=== PATIENT | male | born 1965 | race Caucasian/White ===

== ENCOUNTER 2018-02-19 07:49 | Emergency (ER) | payer BC ==
--- NOTE | 2018-02-19 07:52 | PDOC ---
History of Present Illness - General Chief Complaint: Lightheaded Stated Complaint: DIZZY,HEADACHE History Source: Patient Exam Limitations: No Limitations - History of Present Illness Initial Comments: Please note, pt seen immediately upon arrival to his room_ 02/19/18 07:52 Mr Alba is a 52 yo M with a history of GERD and Anxiety who presents to the ER with a complaint of dizziness/lightheadedness He states that he was in his usual state of health until approximately 3 weeks ago when he noted lightheadedness. His lightheadedness has been persistent, with intermittent worsening bouts. He notes that 2 nights ago he became unsteady and fell in his kitchen. He denies head trauma, states he landed onto his right side. He denies loss of consciousness or amnesia. He awoke the following morning (2 days ago) with a 10 out of 10 headache. He describes the headache as throbbing, bitemporal, persistent. He took several Aleve throughout the day, noticed an improvement in his headache but no complete resolution. He still has a headache today however it is better than yesterday, rated 7/10. He denies neck pain. He decided to come to the emergency department today because he was driving to his mother's house to drop something off, and noted that his dizziness worsened. He denies vertigo, seeing the room spinning around him. He denies tinnitus. He denies focal weakness or numbness. He notices intermittent blurry vision, intermittent double vision. 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 HEAD, EYES, EARS, NOSE AND THROAT: No: change in vision, ear pain, discharge, sore throat, throat swelling. CARDIOVASCULAR: No: chest pain, lightheadedness, palpitations, syncope RESPIRATORY: No: cough, shortness of breath, wheezing, hemoptysis, stridor. GASTROINTESTINAL: No: nausea, vomiting, diarrhea, abdominal cramping, rectal bleeding, constipation. GENITOURINARY: No: dysuria, hematuria, frequency, urgency, flank pain. MUSCULOSKELETAL: No: back pain, neck pain, joint pain, muscle swelling or pain SKIN: No: lesions, pallor, rash or easy bruising. NEUROLOGIC: Yes: headache, vertigo No:paresthesias, weakness ENDOCRINE: No: unexplained weight gain or loss HEMATOLOGIC/LYMPHATIC: No: anemia, easy bleeding, swelling nodes. GENERAL: The patient is in no acute distress. HEAD: Normal with no signs of trauma. EYES: PERRLA, EOMI, sclera anicteric, conjunctiva clear. ENT: Ears normal, nares patent, oropharynx clear without exudates. Moist mucous membranes. NECK: Normal range of motion, supple without lymphadenopathy, JVD, or masses. LUNGS: Breath sounds equal, clear to auscultation bilaterally. No wheezes, and no crackles. HEART:Regular rate and rhythm, normal S1 and S2 without murmur, rub or gallop. ABDOMEN: Soft, nontender, normoactive bowel sounds. No guarding, no rebound. No masses palpable. EXTREMITIES: Normal range of motion, no edema. No clubbing or cyanosis. No erythema, or tenderness. NEUROLOGICAL: Cranial nerves II through XII grossly intact. Normal speech. Pupils are round and reactive to light bilaterally Sensation in tact in the face and extremities Strength in all muscle groups 5/5 No dysmetria No dysdiadokinesis Able to independently heel to toe walk, no unsteadiness observed Pt turned around on his heels with no unsteadiness Rhomberg negative MUSCULOSKELETAL: Back non-tender to palpation, no CVA tenderness SKIN: Warm, Dry, normal turgor, no rashes or lesions noted. 02/19/18 08:56 Past History - Past Medical History Allergies/Adverse Reactions: Allergies Allergy/AdvReac Type Severity Reaction Status Date / Time Penicillins Allergy Verified 02/19/18 08:06 Home Medications: Ambulatory Orders Aspirin [ASA -] 81 mg PO DAILY 03/16/13 Acetaminophen/Caffeine/Butalb [Fioricet -] 1 tab PO TID PRN #28 tablet MDD 3 08/29 Diazepam [Valium] 2 mg PO BID #8 tablet MDD 2 02/19/18 Escitalopram Oxalate [Lexapro -] 10 mg PO DAILY 02/19/18 Finasteride 5 mg PO DAILY 02/19/18 Meclizine HCl [Antivert -] 25 mg PO TID PRN #21 tablet 02/19/18 Naproxen Sodium [Aleve] 220 mg PO PRN PRN 02/19/18 Omeprazole 20 mg PO DAILY 02/19/18 Diabetes: No GI Disorders: Yes (GERD) HTN: No - Suicide/Smoking/Psychosocial Hx Smoking Status: No Smoking History: Never smoked Number of Cigarettes Smoked Daily: 0 Hx Alcohol Use: Yes (OCC) Substance Use Type: None ED Treatment Course - LABORATORY CBC & Chemistry Diagram: 02/19/18 08:28 02/19/18 08:28 Medical Decision Making - Medical Decision Making 02/19/18 08:21 Pt presents to the ER with dizziness and disequilibrium DD: BPPV, Labrynthitis (no recent liiness), Meniers (less likely, no auditory symptoms), IC mass, Migraine headache, Will do: Labs CT head IV Reglan, Tylenol, Fluids Meclizine Re assess 02/19/18 08:58 Laboratory Tests 02/19/18 08:28 WBC 6.5 Hgb 16.3 Hct 47.8 Plt Count 270 02/19/18 09:03 Headache improved Dizziness continues 02/19/18 09:26 Laboratory Tests 02/19/18 08:28 Sodium 135 L Potassium 4.3 Chloride 100 Carbon Dioxide 29 H Anion Gap 6 L BUN 11 D Creatinine 0.[address] head: No significant interval changes Mild volume loss without gross evidence of acute intracranial pathology Pt states his headache is better He still has lightheadedness Call placed to 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 Verdin on ThursdayFebruary 23 Clinical impression: peripheral vertigo, initial presentation 02/19/18 13:32 CTA negative Will discharge to home Pt is eating Clinical Impression: peripheral vertigo, initial presentation *DC/Admit/Observation/Transfer Diagnosis at time of Disposition: Dizzy spells, Vertigo - Discharge Dispostion Disposition: HOME Condition at time of disposition: Stable Decision to Admit order: No - Prescriptions Prescriptions: Acetaminophen/Caffeine/Butalb [Fioricet -] 1 tab PO TID PRN #28 tablet MDD 3 PRN Reason: migraine Diazepam [Valium] 2 mg PO BID #8 tablet MDD 2 Meclizine HCl [Antivert -] 25 mg PO TID PRN #21 tablet PRN Reason: Vertigo - Referrals Referrals: Earl Shook MD [Staff Physician] - - Patient Instructions Printed Discharge Instructions: Vertigo (Alternative Therapy), DI for Vertigo, DI for Benign Paroxysmal Positional Vertigo Additional Instructions: Mr Alba Thank you for coming into the emergency department today. Please take medications as prescribed. You can take meclizine 3 times a day as needed for dizziness. If this doesn't work, you can take Valium as needed for dizziness. Please note, you cannot drive after taking Valium. You can operate heavy machinery after taking Valium. These be sure to keep your follow-up appointment with Dr. Verdin Return to emergency department for any other concerns or complaints at any time - Post Discharge Activity Forms/Work/School Notes: Back to Work
[2018-02-19] MEDS ORDERED: MECLIZINE HCL 25 MG TABLET (FP) PO ONE (08:10)
[2018-02-19] MEDS ORDERED: METOCLOPRAMIDE HCL INJECTION 10 MG/2 ML VIAL IVPUSH ONE (08:10)
[2018-02-19] MEDS ORDERED: SODIUM CHLORIDE 1,000 ML IV STA (08:11)
[2018-02-19] MEDS ORDERED: ACETAMINOPHEN 1000 MG/100 ML VIAL (NON FORMULARY) IVPB ONE (08:12)
[2018-02-19 08:13] VITALS: TEMP 98.8; BMI 28.2
[2018-02-19] MEDS ORDERED: ACETAMINOPHEN INJECTION 100 ML IVPB ONE (08:15)
[2018-02-19] MEDS ORDERED: MECLIZINE HCL 25 MG TABLET (FP) ONE (08:16)
[2018-02-19 08:48] LABS: EOS % 1.2 % (0-4.5); MCH 32.7 pg (25.7-33.7); MEAN PLT VOLUME 7.2 fl (7.5-11.1); WHITE BLOOD COUNT 6.5 K/mm3 (4.0-10.8)
[2018-02-19 08:53] LABS: BASO % 0.4 % (0-2.0); HEMATOCRIT 47.8 % (35.4-49); HEMOGLOBIN 16.3 GM/dl (11.7-16.9); LYMPH % 16.5 % (8-40); MONO % 4.8 % (3.8-10.2); NEUT % 77.1 % (42.8-82.8); PLATELET COUNT 270 K/MM3 (134-434); RBC 4.98 M/mm3 (4.00-5.60); RDW 12.9 % (11.9-15.9)
[2018-02-19 08:59] LABS: ALBUMIN 4.4 g/dl (3.5-5.0); ALK PHOS 55 U/L (32-92); ANION GAP 6 (8-16); BILIRUBIN,TOTAL 0.5 mg/dl (0.2-1.0); BLOOD UREA NITROGEN 11 mg/dl (7-18); CALCIUM 9.4 mg/dl (8.4-10.2); CHLORIDE 100 mmol/L (98-107); CO2 29 mmol/L (22-28); CREATININE 0.9 mg/dl (0.6-1.3); GLUCOSE,RANDOM 100 mg/dl (74-106); POTASSIUM 4.3 mmol/L (3.5-5.1); SGOT/AST 18 U/L (10-42); SGPT/ALT 17 U/L (10-40); SODIUM 135 mmol/L (136-145); TOT PROT 7.3 g/dl (6.4-8.3)
[2018-02-19 09:45] VITALS: BP 132/97; PULSE 62
== END 2018-02-19 13:44 | disposition home or self-care (01) ==
LOC: FER 07:49
PROC: 3E033NZ Introduction of Analgesics, Hypnotics, Sedatives into Peripheral Vein, Percutaneous Approach (ICD-10-PCS; principal; 2018-02-19)
PROC: 3E033GC Introduction of Other Therapeutic Substance into Peripheral Vein, Percutaneous Approach (ICD-10-PCS; 2018-02-19)
PROC: 3E0337Z Introduction of Electrolytic and Water Balance Substance into Peripheral Vein, Percutaneous Approach (ICD-10-PCS; 2018-02-19)
DX: R42 Dizziness and giddiness (principal); K21.9 Gastro-esophageal reflux disease without esophagitis
CPT/HCPCS: 36415; 70450-TC; 70496-TC; 70498-TC; 80053; 85025; 99283-25; J0131; J7030

== ENCOUNTER 2018-11-15 16:32 | Emergency (ER) | payer BC | END 2018-11-15 19:13 | disposition home or self-care (01) | LOC: FER 16:32 ==

== ENCOUNTER 2020-08-22 12:06 | Emergency (ER) | payer BC, OTHER ==
[2020-08-22 12:24] VITALS: TEMP 99.4; BMI 25.9
[2020-08-22] MEDS ORDERED: MECLIZINE HCL 12.5 MG TABLET PO ONE (12:32)
[2020-08-22] MEDS ORDERED: MECLIZINE HCL 12.5 MG TABLET ONE (12:36)
[2020-08-22 13:18] LABS: BASO % 0.4 % (0-2.0); EOS % 1.3 % (0-4.5); HEMOGLOBIN 14.8 GM/dl (11.7-16.9); LYMPH % 21.1 % (8-40); MCH 33.8 pg (25.7-33.7); MEAN CELL VOLUME 102.4 fl (80-96); MEAN PLT VOLUME 7.8 fl (7.5-11.1); MONO % 7.5 % (3.8-10.2); NEUT % 69.7 % (42.8-82.8); PLATELET COUNT 230 K/MM3 (134-434); RDW 12.9 % (11.9-15.9); WHITE BLOOD COUNT 6.9 K/mm3 (4.0-10.8)
[2020-08-22 13:21] LABS: ALBUMIN 3.8 g/dl (3.4-5.0); BILIRUBIN,TOTAL 0.9 mg/dl (0.2-1); CALCIUM 8.7 mg/dl (8.5-10); POTASSIUM 3.9 mmol/L (3.5-5.1); TOT PROT 6.7 g/dl (6.4-8.2)
[2020-08-22 14:50] VITALS: BP 146/93; PULSE 88
== END 2020-08-22 15:18 | disposition home or self-care (01) ==
LOC: FER 12:06
DX: R03.0 Elevated blood-pressure reading, without diagnosis of hypertension (principal)
CPT/HCPCS: 36415; 80053; 82550; 82553; 84484; 85025; 93005; 99284-25

== ENCOUNTER 2020-12-14 05:48 | Day surgery (SDC) | payer BC, OTHER ==
[2020-12-10 15:44] VITALS: BMI 26.1
[2020-12-14] MEDS ORDERED: BUPIVACAINE HCL/PF 2.5 MG/ML - 30 ML VIAL IJ ONE (07:12)
[2020-12-14] MEDS ORDERED: EPINEPHrine 1:1,000 1 MG/1 ML - 30ML VIAL (INJECTION) ONE (07:12)
[2020-12-14] MEDS ORDERED: MIDAZOLAM HCL 2 MG/2 ML SINGLE DOSE VIAL ONE (07:23)
[2020-12-14] MEDS ORDERED: PROPOFOL 20 ML ONE (07:23)
[2020-12-14] MEDS ORDERED: SUCCINYLCHOLINE CHLORIDE 200 MG/10 ML SYRINGE ONE (07:24)
[2020-12-14] MEDS ORDERED: ceFAZolin SODIUM 1 GM VIAL ONE (07:44)
[2020-12-14] MEDS ORDERED: DEXAMETHASONE SOD PHOSPHATE 4 MG/1 ML VIAL ONE (07:44)
[2020-12-14] MEDS ORDERED: LIDOCAINE HCL/PF 2% SDV 5ML VIAL ONE (07:44)
[2020-12-14] MEDS ORDERED: ONDANSETRON 4 MG/2 ML VIAL ONE (07:44)
[2020-12-14] MEDS ORDERED: BUPIVACAINE HCL/PF 0.25% (2.5MG/ML) 10 ML VIAL IJ ONE (08:15)
[2020-12-14] MEDS ORDERED: oxyCODONE HCL 5 MG TABLET PO PRN (08:24)
[2020-12-14] MEDS ORDERED: PROMETHAZINE HCL 25 MG/1 ML VIAL IVPUSH PRN (08:24)
[2020-12-14] MEDS ORDERED: ONDANSETRON 4 MG/2 ML VIAL IVPUSH PRN (08:24)
[2020-12-14] MEDS ORDERED: LACTATED RINGERS SOLUTION 1,000 ML IV SCH (08:30)
[2020-12-14 09:11] VITALS: TEMP 98.2
[2020-12-14 09:34] VITALS: BP 116/76; PULSE 72
== END 2020-12-14 09:37 | disposition home or self-care (01) ==
LOC: FASU 05:48
PROVIDERS: ATTEND Orthopaedic Surgery
PROC: 0SBD4ZZ Excision of Left Knee Joint, Percutaneous Endoscopic Approach (ICD-10-PCS; principal; 2020-12-14 07:44)
DX: S83.242A Other tear of medial meniscus, current injury, left knee, initial encounter (principal); S83.282A Other tear of lateral meniscus, current injury, left knee, initial encounter; M94.8X6 Other specified disorders of cartilage, lower leg; I10 Essential (primary) hypertension; M65.862 Other synovitis and tenosynovitis, left lower leg; X58.XXXA Exposure to other specified factors, initial encounter; Y92.9 Unspecified place or not applicable; Y93.9 Activity, unspecified
CPT/HCPCS: 94760

== ENCOUNTER 2020-12-24 15:05 | Emergency (ER) | payer BC, OTHER ==
[2020-12-24 15:14] VITALS: BP 123/87; PULSE 69; TEMP 99.7; BMI 25.8
[2020-12-24] MEDS ORDERED: ACETAMINOPHEN 1000 MG/100 ML VIAL (NON FORMULARY) IVPB ONE (15:25)
[2020-12-24] MEDS ORDERED: ACETAMINOPHEN INJECTION 100 ML IVPB ONE (15:38)
[2020-12-24 16:05] LABS: BASO % 1.1 % (0-2.0); EOS % 3.9 % (0-4.5); HEMATOCRIT 43.7 % (35.4-49); HEMOGLOBIN 14.9 GM/dl (11.7-16.9); LYMPH % 24.5 % (8-40); MCH 34.6 pg (25.7-33.7); MCHC 34.2 g/dl (32.0-35.9); MEAN CELL VOLUME 101.2 fl (80-96); MEAN PLT VOLUME 7.4 fl (7.5-11.1); MONO % 7.7 % (3.8-10.2); NEUT % 62.8 % (42.8-82.8); PLATELET COUNT 250 K/MM3 (134-434); RBC 4.32 M/mm3 (4.00-5.60); RDW 13.3 % (11.9-15.9); WHITE BLOOD COUNT 6.3 K/mm3 (4.0-10.8)
[2020-12-24 16:30] LABS: ALBUMIN 3.5 g/dl (3.4-5.0); BILIRUBIN,TOTAL 0.6 mg/dl (0.2-1); CALCIUM 9.4 mg/dl (8.5-10); CREATININE 0.9 mg/dl (0.55-1.3); MAGNESIUM 2.1 mg/dL (1.8-2.4); POTASSIUM 4.5 mmol/L (3.5-5.1); TOT PROT 6.2 g/dl (6.4-8.2)
[2020-12-24 16:42] LABS: URINE SPERM 2+
== END 2020-12-24 17:25 | disposition home or self-care (01) ==
LOC: FER 15:05
PROC: 3E0333Z Introduction of Anti-inflammatory into Peripheral Vein, Percutaneous Approach (ICD-10-PCS; principal; 2020-12-24)
DX: R10.9 Unspecified abdominal pain (principal)
CPT/HCPCS: 36415; 80053; 81003; 81015; 83735; 85025; 87086; 99284-25; J0131

== ENCOUNTER 2022-11-11 03:41 | Emergency (ER) | payer BC, OTHER ==
[2022-11-11 03:50] VITALS: PULSE 100; RESP 16; TEMP 99.4; BMI 27.4
[2022-11-11] MEDS ORDERED: KETOROLAC TROMETHAMINE 30 MG/1 ML VIAL ONE (04:10)
[2022-11-11] MEDS ORDERED: KETOROLAC TROMETHAMINE 30 MG/1 ML VIAL IVPUSH ONE (04:10)
[2022-11-11 05:19] VITALS: BP 130/90
[2022-11-11 05:55] LABS: ALBUMIN 3.6 g/dl (3.4-5.0); BLOOD UREA NITROGEN 6.6 mg/dL (7-18); CALCIUM 8.5 mg/dL (8.5-10.1)
[2022-11-11 05:58] LABS: CREATININE 0.8 mg/dL (0.55-1.3); HEMOGLOBIN 15.6 GM/dL (11.7-16.9); MCHC 34.7 g/dl (32.0-35.9); MEAN CELL VOLUME 100.8 fl (80-96); MEAN PLT VOLUME 7.7 fl (7.5-11.1); PLATELET COUNT 269 10^3/uL (134-434); RBC 4.47 M/mm3 (4.00-5.60); RDW 13.8 % (11.9-15.9); WHITE BLOOD COUNT 8.8 K/mm3 (4.0-10.0)
[2022-11-11 06:00] LABS: BILIRUBIN,TOTAL 0.4 mg/dL (0.2-1); TOT PROT 6.8 g/dl (6.4-8.2)
== END 2022-11-11 06:20 | disposition home or self-care (01) ==
LOC: FER 03:41
PROC: 3E0333Z Introduction of Anti-inflammatory into Peripheral Vein, Percutaneous Approach (ICD-10-PCS; principal; 2022-11-11)
DX: M79.10 Myalgia, unspecified site (principal)
CPT/HCPCS: 36415; 80053; 82550; 85027; 99284-25

== ENCOUNTER 2023-07-16 07:23 | Day surgery (SDC) | payer OTHER ==
[2023-07-13 15:14] VITALS: BMI 26.6
[2023-07-16] MEDS ORDERED: LIDOCAINE HCL 1%, 10 MG/ML (20ML VIAL) ONE (08:18)
[2023-07-16] MEDS ORDERED: BUPIVACAINE HCL/PF 0.25% (2.5MG/ML) 10 ML VIAL ONE (08:18)
[2023-07-16] MEDS ORDERED: oxyCODONE HCL 5 MG TABLET PO PRN (09:12)
[2023-07-16] MEDS ORDERED: ONDANSETRON 4 MG/2 ML VIAL IVPUSH PRN (09:12)
[2023-07-16] MEDS ORDERED: LACTATED RINGERS SOLUTION 1,000 ML IV SCH (09:15)
[2023-07-16] MEDS ORDERED: MIDAZOLAM HCL 2 MG/2 ML SINGLE DOSE VIAL ONE (09:19)
[2023-07-16] MEDS ORDERED: PROPOFOL 20 ML ONE (09:19)
[2023-07-16] MEDS ORDERED: ceFAZolin SODIUM 1 GM VIAL ONE ×2 (09:25)
[2023-07-16] MEDS ORDERED: ONDANSETRON 4 MG/2 ML VIAL ONE (09:31)
[2023-07-16] MEDS ORDERED: KETOROLAC TROMETHAMINE 30 MG/1 ML VIAL ONE (09:31)
[2023-07-16 10:06] VITALS: RESP 16; TEMP 98.2
[2023-07-16 10:20] VITALS: BP 93/64; PULSE 60
== END 2023-07-16 10:50 | disposition home or self-care (01) ==
LOC: FASU 07:23
PROVIDERS: ATTEND Orthopaedic Surgery
PROC: 01N50ZZ Release Median Nerve, Open Approach (ICD-10-PCS; principal; 2023-07-16 09:36)
DX: G56.01 Carpal tunnel syndrome, right upper limb (principal)

== ENCOUNTER 2024-07-13 08:15 | Emergency (ER) | payer BC, OTHER, MEDICARE ==
[2024-07-13 08:28] VITALS: TEMP 98.6; BMI 26.9
[2024-07-13 09:47] VITALS: BP 135/89; PULSE 95; RESP 16
== END 2024-07-13 10:17 | disposition home or self-care (01) ==
LOC: FER 08:15
DX: H02.842 Edema of right lower eyelid (principal); H02.845 Edema of left lower eyelid; J34.89 Other specified disorders of nose and nasal sinuses; R68.83 Chills (without fever); Z20.822 Contact with and (suspected) exposure to COVID-19
CPT/HCPCS: 0241U-QW; 81003; 87086; 99283-25

== ENCOUNTER 2024-11-03 06:21 | Emergency (ER) | payer OTHER, BC ==
[2024-11-03 06:29] VITALS: BP 144/97; PULSE 119; RESP 16; TEMP 98.5; BMI 26.9
[2024-11-03] MEDS: SODIUM CHLORIDE 1,000 ML IV ONE (06:58)
[2024-11-03 07:34] LABS: HEMATOCRIT 44.9 % (35.4-49); MCH 34.3 pg (25.7-33.7); MCHC 33.4 g/dl (32.0-35.9); MEAN CELL VOLUME 102.8 fl (80-96); MEAN PLT VOLUME 7.8 fl (7.5-11.1); PLATELET COUNT 256.9 10^3/uL (134-434); RBC 4.37 10^6/uL (4.00-5.60); RDW 13.6 % (11.9-15.9); WHITE BLOOD COUNT 7.6 10^3/uL (4.0-10.8)
[2024-11-03 08:01] LABS: ALBUMIN 4.3 g/dl (3.4-5.0); BILIRUBIN,TOTAL 0.5 mg/dl (0.2-1); CREATININE 0.8 mg/dl (0.6-1.3); MAGNESIUM 2.2 mg/dL (1.8-2.4); PHOSPHOROUS 4.8 (2.5-4.9); POTASSIUM 4.5 mmol/L (3.5-5.1); TOT PROT 6.6 g/dl (6.4-8.2)
== END 2024-11-03 09:04 | disposition home or self-care (01) ==
LOC: FER 06:21
PROC: 3E0337Z Introduction of Electrolytic and Water Balance Substance into Peripheral Vein, Percutaneous Approach (ICD-10-PCS; principal; 2024-11-03)
DX: R25.2 Cramp and spasm (principal); M79.18 Myalgia, other site; Z20.822 Contact with and (suspected) exposure to COVID-19
CPT/HCPCS: 0241U-QW; 36415; 80053; 83735; 84100; 85027; 99284-25